=== PATIENT | male | born 1960 | race Caucasian/White ===

== ENCOUNTER 2017-02-27 06:04 | Emergency (ER) | payer OTHER ==
[2017-02-27] MEDS: morphine 4 MG/ML VIAL IV (06:52)
[2017-02-27] MEDS: LIDOCAINE/MYLANTA 40 ML BTL PO (06:53)
[2017-02-27] MEDS: ONDANSETRON 4 MG INJ IV (06:53)
[2017-02-27] MEDS: FAMOTIDINE 20 MG INJ IV (06:53)
[2017-02-27] MEDS: SOD CHLORIDE 0.9% 500 ML IV (07:13)
[2017-02-27 07:53] LABS: ADD MAN DIFF? NO
[2017-02-27 08:15] LABS: BASOPHILS % 0.3 % (0.0-2.0); EOSINOPHILS # 0.2 10^3/ul (0.0-0.5); EOSINOPHILS % 1.4 % (0.0-7.0); HEMATOCRIT 49.7 % (42.0-52.0); HEMOGLOBIN 16.7 g/dl (14.0-18.0); LYMPHOCYTES # 1.8 10^3/ul (0.8-2.9); LYMPHOCYTES % 12.8 % (15.0-51.0); MEAN CORPUSCULAR HGB CONC 33.6 g/dl (32.0-37.0); MEAN CORPUSCULAR VOLUME 89.4 fl (82.0-101.0); MEAN PLATELET VOLUME 10.3 fl (7.4-10.4); MONOCYTE # 0.8 10^3/ul (0.3-0.9); MONOCYTES % 5.9 % (0.0-11.0); NEUTROPHIL # 11.3 10^3/ul (1.6-7.5); PLATELET COUNT 195 10^3/UL (140-415); RED BLOOD COUNT 5.56 10^6/ul (4.70-6.10); RED CELL DISTRIBUTION WIDTH 13.3 % (11.5-14.5)
[2017-02-27 08:15] LABS: WHITE BLOOD COUNT 14.4 10^3/ul (4.8-10.8)
[2017-02-27 08:34] LABS: ALANINE AMINOTRANSFERASE 28 IU/L (13-69); ALBUMIN 4.5 g/dl (3.3-4.9); ALBUMIN/GLOBULIN RATIO 1.28; ALKALINE PHOSPHATASE 96 IU/L (42-121); ANION GAP 17 (8-16); ASPARTATE AMINO TRANSFERASE 23 IU/L (15-46); BILIRUBIN,INDIRECT 0.4 mg/dl (0-1.1); BILIRUBIN,TOTAL 0.4 mg/dl (0.2-1.3); BLOOD UREA NITROGEN 14 mg/dl (7-20); CALCIUM 9.1 mg/dl (8.4-10.2); CARBON DIOXIDE 26 mmol/L (21-31); CHLORIDE 104 mmol/L (97-110); CREATININE 0.77 mg/dl (0.61-1.24); GLUCOSE 117 mg/dl (70-220); LIPASE 114 U/L (23-300); POTASSIUM 3.4 mmol/L (3.5-5.1); SODIUM 144 mmol/L (135-144)
[2017-02-27 08:46] LABS: TROPONIN-I < 0.012 ng/ml (0.00-0.12)
== END 2017-02-27 12:30 | disposition home or self-care (01) ==
LOC: E/R 06:04
DX: K21.9 Gastro-esophageal reflux disease without esophagitis (principal)
CPT/HCPCS: 36415; 80053; 83690; 84484; 85025; 93005; 96361; 96374; 96375; 99284-25

== ENCOUNTER 2017-04-23 16:41 | Emergency (ER) | payer OTHER | END 2017-04-23 21:14 | disposition home or self-care (01) | LOC: E/R 16:41 → FTE 21:14 | DX: R05 Cough (principal) | CPT/HCPCS: 71045; 99283-25 ==

== ENCOUNTER 2017-07-07 08:44 | Emergency (ER) | payer OTHER ==
[2017-07-07] MEDS: LIDOCAINE/MYLANTA 40 ML BTL PO (09:55)
[2017-07-07] MEDS: BELLADONNA/PHENOBARBITAL TAB PO (09:55)
[2017-07-07] MEDS: KETOROLAC 60 MG INJ IM (09:56)
== END 2017-07-07 10:23 | disposition home or self-care (01) ==
LOC: FTE 08:44
DX: J02.9 Acute pharyngitis, unspecified (principal)
CPT/HCPCS: 96372; 99284-25

== ENCOUNTER 2017-07-08 00:25 | Emergency (ER) | payer OTHER ==
[2017-07-08] MEDS: ASPIRIN (EC) 325 MG TAB PO (01:32)
[2017-07-08 02:50] LABS: WHITE BLOOD COUNT 10.3 10^3/ul (4.8-10.8)
[2017-07-08 02:50] LABS: ADD MAN DIFF? NO; BASOPHIL # 0.1 10^3/ul (0.0-0.1); BASOPHILS % 0.6 % (0.0-2.0); EOSINOPHILS # 0.2 10^3/ul (0.0-0.5); EOSINOPHILS % 1.5 % (0.0-7.0); HEMATOCRIT 46.4 % (42.0-52.0); HEMOGLOBIN 15.9 g/dl (14.0-18.0); LYMPHOCYTES # 2.8 10^3/ul (0.8-2.9); LYMPHOCYTES % 27.3 % (15.0-51.0); MEAN CORPUSCULAR HEMOGLOBIN 30.8 pg (29.0-33.0); MEAN CORPUSCULAR HGB CONC 34.3 g/dl (32.0-37.0); MEAN CORPUSCULAR VOLUME 89.9 fl (82.0-101.0); MEAN PLATELET VOLUME 10.6 fl (7.4-10.4); MONOCYTES % 9.3 % (0.0-11.0); NEUTROPHIL # 6.3 10^3/ul (1.6-7.5); NEUTROPHILS % 60.9 % (39.0-77.0); PLATELET COUNT 203 10^3/UL (140-415); RED BLOOD COUNT 5.16 10^6/ul (4.70-6.10); RED CELL DISTRIBUTION WIDTH 13.5 % (11.5-14.5)
[2017-07-08 03:10] LABS: ALANINE AMINOTRANSFERASE 23 IU/L (13-69); ALBUMIN 4.1 g/dl (3.3-4.9); ALBUMIN/GLOBULIN RATIO 1.13; ALKALINE PHOSPHATASE 86 IU/L (42-121); ANION GAP 15 (8-16); ASPARTATE AMINO TRANSFERASE 31 IU/L (15-46); BILIRUBIN,INDIRECT 0.6 mg/dl (0-1.1); BILIRUBIN,TOTAL 0.6 mg/dl (0.2-1.3); BLOOD UREA NITROGEN 20 mg/dl (7-20); CALCIUM 9.3 mg/dl (8.4-10.2); CARBON DIOXIDE 30 mmol/L (21-31); CHLORIDE 105 mmol/L (97-110); CREATININE 0.79 mg/dl (0.61-1.24); GLUCOSE 110 mg/dl (70-220); POTASSIUM 3.5 mmol/L (3.5-5.1); SODIUM 146 mmol/L (135-144); TOTAL PROTEIN 7.7 g/dl (6.1-8.1)
[2017-07-08 03:11] LABS: INR 0.97
[2017-07-08 03:12] LABS: PARTIAL THROMBOPLASTIN TIME 32.7 Sec (25.0-35.0)
[2017-07-08 03:21] LABS: TROPONIN-I 0.014 ng/ml (0.00-0.12)
[2017-07-08] MEDS: GUAIFENESIN/DM 5ML CUP PO (03:50)
== END 2017-07-08 03:50 | disposition home or self-care (01) ==
LOC: FTE 00:25
DX: J18.9 Pneumonia, unspecified organism (principal); J32.9 Chronic sinusitis, unspecified; R07.89 Other chest pain
CPT/HCPCS: 71046; 80053; 84484; 85025; 85610; 85730; 93005; 99285-25

== ENCOUNTER 2017-11-19 03:32 | Emergency (ER) | payer OTHER ==
[2017-11-19] MEDS: LIDOCAINE/MYLANTA 40 ML BTL PO (03:48)
== END 2017-11-19 04:15 | disposition home or self-care (01) ==
LOC: FTE 03:32
DX: K21.9 Gastro-esophageal reflux disease without esophagitis (principal)
CPT/HCPCS: 99282; Z7502

== ENCOUNTER 2018-02-16 17:30 | Emergency (ER) | payer OTHER ==
[2018-02-16] MEDS: NAPROXEN 500 MG TAB PO (18:45)
== END 2018-02-16 20:13 | disposition home or self-care (01) ==
LOC: FTE 17:30
DX: M25.551 Pain in right hip (principal); R40.2412 Glasgow coma scale score 13-15, at arrival to emergency department
CPT/HCPCS: 73510; 99283-25

== ENCOUNTER 2018-05-25 01:56 | Emergency (ER) | payer OTHER ==
[2018-05-25] MEDS: ACETAMINOPHEN 160 MG/5ML CUP PO (03:37)
== END 2018-05-25 03:48 | disposition home or self-care (01) ==
LOC: FTE 01:56
DX: J02.9 Acute pharyngitis, unspecified (principal); K21.9 Gastro-esophageal reflux disease without esophagitis
CPT/HCPCS: 99283; Z7502